=== PATIENT | male | born 1965 | race Caucasian/White ===

== ENCOUNTER 2018-07-03 15:06 | Emergency (ER) | payer OTHER, MEDICAID ==
--- NOTE | 2018-07-03 15:18 | EDPHY ---
H & P Time Seen by Provider: 07/03/18 15:17 HPI/ROS: CHIEF COMPLAINT: Altered mental status, urinary tract infection HISTORY OF PRESENT ILLNESS: The patient has a history of Reynolds's disease and was recently diagnosed with a urinary tract infection. It is unclear if the patient has started antibiotics. He typically lives at [place]. The patient was noted to be somewhat more lethargic than normal. He was also noted to have a low-grade temperature which prompted his referral to the emergency department. The patient is unable to communicate secondary to his Reynolds's disease. The patient denies pain. REVIEW OF SYSTEMS: A comprehensive 10 point review of systems is otherwise negative aside from elements mentioned in the history of present illness. Source: Patient Exam Limitations: No limitations - Medical/Surgical History PMH: Past medical history: Reynolds's disease, dysphagia, cognitive impairment - Family History Significant Family History: No pertinent family hx - Social History Smoking Status: Current every day smoker Alcohol Use: None - Physical Exam Exam: General Appearance: Middle-aged male, no acute distress Eyes: Pupils equal and round no pallor or injection ENT, Mouth: Dry mucous membranes Respiratory: There are no retractions, lungs are clear to auscultation Cardiovascular: Regular rate and rhythm Gastrointestinal: Abdomen is soft and nontender, no masses, bowel sounds normal Neurological: Withdrawals to pain all 4 extremities, able to follow simple commands, neuro exam consistent with underlying Reynolds's disease Skin: Warm and dry, no rashes Musculoskeletal: Neck is supple nontender Extremities: symmetrical, full range of motion Constitutional: Initial Vital Signs Temperature (C) 36.3 C 07/03/18 15:36 Heart Rate 91 07/03/18 15:36 Respiratory Rate 18 07/03/18 15:36 Blood Pressure 123/86 H 07/03/18 15:36 O2 Sat (%) 94 07/03/18 15:36 O2 Delivery Mode Room Air Allergies/Adverse Reactions: Penicillins Allergy (Verified 07/03/18 15:34) Home Medications: Medication Instructions Recorded Aspirin EC 07/03/18 Lexapro 07/03/18 Risperdal 07/03/18 Seroquel 07/03/18 levOFLOXACIN [Levaquin] 500 mg PO DAILY #7 tablet 07/03/18 Medical Decision Making ED Course/Re-evaluation: I reviewed the patient's outpatient records from the shelter. He is nontoxic and well-appearing. The patient does have a urinary tract infection. He received a g of ceftriaxone in the emergency department. Screening laboratories are sent. The patient has no leukocytosis, no evidence of renal failure and a normal venous lactic acid. The patient will be discharged back to his shelter with a 7 day course of Levaquin. The patient is advised to return to the ED for high fever, worsening mental status, vomiting, severe pain, decreased urination or other concerns. Re-evaluated the patient again at 4:45 p.m. And he is in no acute distress. Patient will be discharged back to his nursing facility with customary return precautions. Differential Diagnosis: Differential diagnosis considered includes urinary tract infection, renal failure, dehydration, metabolic derangement - Data Points Laboratory Results: Laboratory Results 07/03/18 15:07 07/03/18 15:07 07/03/18 07/03/18 07/03/18 15:30 15:07 15:07 WBC 9.45 10^3/uL 10^3/uL (3.80-9.50) RBC 4.78 10^6/uL 10^6/uL (4.40-6.38) Hgb 14.3 g/dL g/dL (13.7-17.5) Hct 42.5 % % (40.0-51.0) MCV 88.9 fL fL (81.5-99.8) MCH 29.9 pg pg (27.9-34.1) MCHC 33.6 g/dL g/dL (32.4-36.7) RDW 12.9 % % (11.5-15.2) Plt Count 373 10^3/uL 10^3/uL (150-400) MPV 9.4 fL fL (8.7-11.7) Neut % (Auto) 74.4 % H % (39.3-74.2) Lymph % (Auto) 14.0 % L % (15.0-45.0) [place] % (Auto) 9.3 % % (4.5-13.0) Eos % (Auto) 1.5 % % (0.6-7.6) Baso % (Auto) 0.4 % % (0.3-1.7) Nucleat RBC Rel Count 0.0 % % (0.0-0.2) Absolute Neuts (auto) 7.03 10^3/uL H 10^3/uL (1.70-6.50) Absolute Lymphs (auto) 1.32 10^3/uL 10^3/uL (1.00-3.00) Absolute Monos (auto) 0.88 10^3/uL H 10^3/uL (0.30-0.80) Absolute Eos (auto) 0.14 10^3/uL 10^3/uL (0.03-0.40) Absolute Basos (auto) 0.04 10^3/uL 10^3/uL (0.02-0.10) Absolute Nucleated RBC 0.00 10^3/uL 10^3/uL (0-0.01) Immature Gran % 0.4 % % (0.0-1.1) Immature Gran # 0.04 10^3/uL 10^3/uL (0.00-0.10) ABG Lactic Acid 1.0 mmol/L mmol/L (0.5-1.6) Sodium 141 mEq/L mEq/L (135-145) Potassium 4.5 mEq/L mEq/L (3.5-5.2) Chloride 104 mEq/L mEq/L (97-110) Carbon Dioxide 25 mEq/l mEq/l (22-31) Anion Gap 12 mEq/L mEq/L (6-14) BUN 22 mg/dL mg/dL (7-23) Creatinine 0.8 mg/dL mg/dL (0.7-1.3) Estimated GFR > 60 Glucose 112 mg/dL H mg/dL (70-100) Calcium 9.7 mg/dL mg/dL (8.5-10.4) Total Bilirubin 0.7 mg/dL mg/dL (0.1-1.4) Conjugated Bilirubin 0.2 mg/dL mg/dL (0.0-0.5) Unconjugated Bilirubin 0.5 mg/dL mg/dL (0.0-1.1) AST 18 IU/L IU/L (17-59) ALT 20 IU/L L IU/L (21-72) Alkaline Phosphatase 94 IU/L IU/L (38-126) Total Protein 8.1 g/dL g/dL (6.3-8.2) Albumin 4.4 g/dL g/dL (3.5-5.0) Medications Given: Discontinued Medications Sodium Chloride (Ns) 1,000 mls @ 0 mls/hr IV EDNOW ONE; Wide Open PRN Reason: Protocol Stop: 07/03/18 15:22 Last Admin: 07/03/18 15:37 Dose: 1,000 mls Ceftriaxone Sodium/Dextrose (Rocephin 1 Gm (Premix)) 50 mls @ 100 mls/hr IV EDNOW ONE PRN Reason: Protocol Stop: 07/03/18 16:19 Last Admin: 07/03/18 16:01 Dose: 50 mls Departure - Departure Disposition: Home, Routine, Self-Care Clinical Impression: Dehydration, Urinary tract infection, [place]'s disease Condition: Good Instructions: Dehydration (ED) Additional Instructions: 1. Take antibiotics as prescribed for next 7 days. 2. Return to the ED for high fever, severe pain, vomiting or other concerns. Prescriptions: levOFLOXACIN [Levaquin] 500 mg PO DAILY #7 tablet
[2018-07-03] MEDS ORDERED: NS 1,000 ML IV ONE (15:21)
[2018-07-03 15:27] LABS: PLATELET COUNT 373 10^3/uL (150-400)
[2018-07-03] MEDS ORDERED: cefTRIAXone 1 GM/DEXTROSE 1 GM/50 ML BAG IV ONE (16:02)
[2018-07-03 17:18] VITALS: BP 132/78
== END 2018-07-03 17:19 | disposition home or self-care (01) ==
DX: N39.0 Urinary tract infection, site not specified (principal); E86.0 Dehydration; G10 Huntington's disease; F17.200 Nicotine dependence, unspecified, uncomplicated
CPT/HCPCS: 96374; 99284; J0696